=== PATIENT | male | born 1950 | race Caucasian/White ===

== ENCOUNTER 2017-05-05 14:40 | Inpatient (IN) | payer BC, OTHER ==
--- NOTE | 2017-05-05 15:44 | EDPHY ---
H & P Time Seen by Provider: 05/05/17 15:36 HPI/ROS: CHIEF COMPLAINT: Right 3rd finger pain, swelling, and redness HISTORY OF PRESENT ILLNESS: The patient is a 67 y/o male complaining of a red, swollen, and painful area on his right 3rd finger. Due to his work, he often gets metal splinters in his fingers, which he thought happened yesterday when a small painful dot was present on his finger. However, he was unable to get anything out of his finger. He did put Neosporin on it last night. He has had difficulty bending this finger. Last night he experienced a fever, sweats, chills, and felt slightly confused, but no fever today. This morning he awoke with increased swelling of his entire digit, with redness extending up his arm. He is also complaining of pain and redness of his left 5th toe. Denies chest pain, cough, urinary complaints or other pertinent symptoms. REVIEW OF SYSTEMS: Aside from elements discussed in the HPI, a comprehensive 10-point review of systems was reviewed and is negative. Past Medical/Surgical History: Osteoarthritis, eczema, hip surgery Social History: at bedside, works for [employer], lives in [place]. Smoking Status: Former smoker Physical Exam: General Appearance: Alert, pleasant Eyes: Pupils equal and round, no conjunctival pallor or injection ENT, Mouth: Mucous membranes moist Neck: Normal inspection Respiratory: Lungs are clear to auscultation Cardiovascular: Regular rate and rhythm Gastrointestinal: Abdomen is soft and non-tender Neurological: A&O, nonfocal exam Skin: Warm and dry Extremities: Diffuse edema and erythema of entire upper right third digit, red streak that extends to his upper arm, no tenderness along the flexor tendon on the palmar aspect, no fluctuance. ROM without pain, but is limited due to swelling. No left axillary adenopathy. 5th left toe--erythema of distal phalanx , no drainage. Psychiatric: Mood and affect normal Constitutional: Initial Vital Signs Temperature (C) 36.7 C 05/05/17 14:55 Heart Rate 84 05/05/17 14:55 Respiratory Rate 16 05/05/17 14:55 Blood Pressure 159/95 H 05/05/17 14:55 O2 Sat (%) 96 05/05/17 14:55 O2 Delivery Mode Room Air Allergies/Adverse Reactions: latex Allergy (Verified 05/05/17 15:04) Rash Home Medications: Medication Instructions Recorded NK [No Known Home Meds] 05/05/17 Medical Decision Making - Diagnostics Imaging: I viewed and interpreted images myself ED Course/Re-evaluation: The patient is a 67 y/o male presenting with diffuse edema and erythema of the entire upper right third digit, with a red streak that extends to his upper arm. No tenderness along the flexor tendon on the palmar aspect. ROM without pain, but is limited due to swelling. There is no left axillary adenopathy. The patient's symptoms are c/w cellulitis and lymphangitis. There is no evidence of flexor tenosynovitis or abscess. He will need to be admitted for IV antibiotics; patient and his are comfortable with this plan. 2gm IV Ancef administered. Does not meet SIRS criteria. 1620: Patient's right hand x-ray reviewed by me is normal, there is no foreign body present. 1626: Consulted with hospitalist service, Dr. Goodman accepts admission of this patient. 1635: Consulted with Dr. Adams, hand surgeon, regarding the patient's cellulitis and lymphangitis. He agrees to consult on this patient. He does not recommend an MRI at this time. Differential Diagnosis: Differential diagnosis includes though it is not limited to flexor tenosynovitis , abscess, osteomyelitis, retained foreign body, neurovascular compromise. - Data Points Laboratory Results: Laboratory Results 05/05/17 15:45 05/05/17 15:45 Medications Given: Vancomycin/Sodium Chloride (Vancomycin 1 Gm (Premix)) 250 mls @ 250 mls/hr IV Q12H ADDISON Stop: 05/07/17 20:29 Last Admin: 05/06/17 08:53 Dose: 250 mls Ibuprofen (Motrin) 600 mg PO Q8HRS PRN PRN Reason: Pain, Inflammatory Stop: 11/01/17 22:41 Last Admin: 05/06/17 10:40 Dose: 600 mg Discontinued Medications Diphtheria/Tetanus/Acell Pertussis (Boostrix) 0.5 ml IM .ONCE ONE Stop: 05/05/17 15:49 Last Admin: 05/05/17 16:24 Dose: 0.5 ml Cefazolin Sodium/Dextrose (Ancef 2 Gm (Premix)) 100 mls @ 200 mls/hr IV EDNOW ONE PRN Reason: Protocol Stop: 05/05/17 16:17 Last Admin: 05/05/17 16:23 Dose: 100 mls Departure - Departure Disposition: [facility] Inpatient Acute Clinical Impression: Lymphangitis Cellulitis Qualifiers: Site of cellulitis: extremity Site of cellulitis of extremity: finger Laterality: right Qualified Code(s): L03.011 - Cellulitis of right finger Report Scribed for: Marcy Pérez Report Scribed by: Tg Doardo Date of Report: 05/05/17 Time of Report: 15:44 Physician Review and Approval Statement: 05/05/17 15:44 Portions of this note were transcribed by a medical staff physician. I personally performed a history, physical exam, medical decision making, and confirmed accuracy of information the transcribed note.
[2017-05-05] MEDS ORDERED: TDAP ADULT 0.5 ML INJ (BOOSTRIX) IM ONE (15:48)
[2017-05-05] MEDS ORDERED: ceFAZolin 2 GM/DEXTROSE 100 ML IV ONE (15:48)
[2017-05-05 15:57] LABS: % IMMATURE GRANULYOCYTES 0.4 % (0.0-1.1); ABSOLUTE IMMATURE GRANULOCYTES 0.04 10^3/uL (0.00-0.10); ADD DIFF? NO; ADD MORPH? NO; ADD SCAN? NO; ATYPICAL LYMPHOCYTE FLAG 0 (0-99); FRAGMENT RBC FLAG 0 (0-99); HEMATOCRIT 47.5 % (40.0-51.0); LEFT SHIFT FLG 0 (0-99); LIPEMIA HEMOLYSIS FLAG 90 (0-99); MEAN CELL HEMOGLOBIN 32.9 pg (27.9-34.1); MEAN CELL HEMOGLOBIN CONCENTR. 35.8 g/dL (32.4-36.7); MEAN CELL VOLUME 91.9 fL (81.5-99.8); MEAN PLATELET VOLUME 11.1 fL (8.7-11.7); PLATELET CLUMPS FLAG 0 (0-99); PLATELET COUNT 182 10^3/uL (150-400); RED BLOOD CELL COUNT 5.17 10^6/uL (4.40-6.38); RED CELL DISTRIBUTION WIDTH 12.7 % (11.5-15.2)
[2017-05-05 16:07] LABS: INR 1.05 (0.83-1.16); PROTIME(PATIENT) 13.9 SEC (12.0-15.0)
[2017-05-05 16:08] LABS: APTT 30.6 SEC (23.0-38.0)
[2017-05-05 16:11] LABS: ANION GAP 14 mEq/L (8-16); BILIRUBIN,TOTAL 1.2 mg/dL (0.1-1.4); CALCIUM 9.4 mg/dL (8.5-10.4); CARBON DIOXIDE 27 mEq/l (22-31); CHLORIDE 101 mEq/L (97-110); CREATININE 1.2 mg/dL (0.7-1.3); GLOMERULAR FILTRATION RATE > 60; GLUCOSE 90 mg/dL (70-100); SODIUM 142 mEq/L (134-144)
[2017-05-05] MEDS ORDERED: ONDANSETRON 4 MG/2 ML VIAL IVP PRN (16:26)
[2017-05-05] MEDS ORDERED: ACETAMINOPHEN 325 MG TAB PO PRN (16:26)
[2017-05-05] MEDS ORDERED: ONDANSETRON DISINTEGRATING 4 MG TAB PO PRN (16:26)
--- NOTE | 2017-05-05 20:01 | GHP ---
[f rep st] HISTORY AND PHYSICAL DATE OF ADMISSION: 05/05/2017 CHIEF COMPLAINT: Painful finger. HISTORY OF PRESENT ILLNESS: This is a 67-year-old male with limited past medical history, who notice d 48 hours ago some discomfort on the medial aspect of his middle finger on the left. The patient de scribed a small red bump noted when he had the discomfort. Patient works frequently in [employer] and has experienced metal splinters in the past. He was suspicious he may have gotten one. Took a self- sterilized needle and attempted to remove whatever was causing the discomfort. The patient then note d increased discomfort and some erythema at the puncture site. Over the course of the next 24 hours, the pain progressed until the evening prior to presentation. His finger became markedly swollen, er ythematous with bruising, markedly increased pain, and inability to move his finger, and then streaki ng erythema up the dorsal aspect of his hand into his forearm and elbow. At this point the patient p resented to the emergency department for evaluation. In the ED, he is almost unable to move the fing er secondary to pain. It is markedly swollen and discolored. There is streaking that passes the elb ow of the left arm. The patient does endorse subjective fevers and chills the evening prior to prese ntation with a sensation of nausea. Denies any vomiting. Denies any diarrhea. Denies chest pain, s hortness of breath. The patient similarly excavated the small toe on his left foot and has additiona l erythema around that digit. PAST MEDICAL HISTORY: 1. Eczema. 2. Osteoarthritis. SOCIAL HISTORY: Negative for tobacco. Occasional marijuana. Alcohol on the weekends. FAMILY HISTORY: Negative for skin infections. REVIEW OF SYSTEMS: A 10-point review of systems is negative with the exception of that reported in t he HPI. PHYSICAL EXAMINATION: VITAL SIGNS: Blood pressure 149/89, heart rate 67, respiratory rate 16, 94% o n room air, 37.0. GENERAL: This is a very pleasant, middle-aged male in no acute distress. HEENT: Notable for moist mucous membranes. Eye exam is negative for any icterus. CARDIAC: Patient is reg ular rate and rhythm. PULMONARY: Clear to auscultation bilaterally. GASTROINTESTINAL: Positive rex wel sounds. ABDOMEN: Obese, but soft. MUSCULOSKELETAL: No lower extremity edema. Limited range o f motion of the finger. No fluctuance is appreciated. SKIN: The 3rd digit on his left hand is dominick edly swollen and erythematous with bruising around the distal joint. There is clear erythema extendi ng up the dorsum of his hand into the forearm and across the lateral aspect of the elbow up into the upper arm. The skin of the 5th digit on the left foot is erythematous. No fluctuance or streaking i s appreciated. DATA: X-ray of the left hand, which I personally reviewed and interpreted, does not show any foreign objects or osseous abnormalities. LABORATORY: White count 10.4, hematocrit 47.5, platelets of 182. Creatinine 1.2, sodium 142, potass ium 4.0. ASSESSMENT AND PLAN: This is a 67-year-old male presenting with a painful finger. 1. Acute cellulitis of the left 3rd digit. There is marked erythema, edema of that digit, with asso ciated advanced streaking up the arm. Certainly concerning for a progressive infection. Will admit t he patient. Initiate IV cefazolin. We have consulted the Hand Surgeons to come look and make recomm endations related to either additional diagnostic imaging or surgical intervention. Will treat the p atient with p.r.n. pain medications as needed. Keep n.p.o. until Dr. Adams, who was consulted, leave s recommendations. Blood cultures have been obtained from the emergency department. 2. Acute leukocytosis secondary to cellulitis. We will follow. On appropriate antibiotic therapy. 3. Prophylaxis with Lovenox. 4. Diet: N.p.o. until Dr. Adams evaluates. DISPOSITION: Expecting greater than 2 midnights, as the patient's infection is clearly advancing. S uspect he will need more than 24 hours of IV antibiotics for treatment. I discussed the case with the emergency room physician. Patient will be triaged to the Medical-Surgi emely Unit floor for care. /[id number]/MODL
[2017-05-05] MEDS: VANCOMYCIN HCL/NORMAL SALINE 250 ML IV SCH (20:55)
[2017-05-05] MEDS ORDERED: ceFAZolin 2 GM/DEXTROSE 100 ML IV SCH (22:00)
[2017-05-05] MEDS ORDERED: HYDROCODONE/APAP 5/325 TAB PO PRN (22:43)
--- NOTE | 2017-05-05 22:47 | GCON ---
[f rep st] CONSULTATION CONSULTATION NOTE DATE OF CONSULTATION: 05/05/2017 CHIEF COMPLAINT: Infection left middle finger. 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 On Saturday, he thought he might have a puncture wound in his left middle finger, but now doubts it. He was picking at it, making an attempt to drain whatever was there in the puncture site using a needle. In the ensuing day and a half, he noticed increasing pain in the distal segment of the left middle finger and redness, which began to spread up the finger and hand. He says he had some fever last night. PAST MEDICAL HISTORY: Generally unremarkable. He has a history of eczema and osteoarthritis. He did have an ingrown toenail, which was infected several weeks back and has a small receding amount of redness. SOCIAL HISTORY: He is a nonsmoker for the past 20 years, but occasionally smokes marijuana. PHYSICAL EXAMINATION: VITAL SIGNS: He is afebrile. His vital signs are stable. EXTREMITIES: Examination of the involved left hand shows what looks like a little puncture wound at the dorsal aspect just distal to the DIP joint and really quite marked fusiform swelling of the entire digit. There is additional erythema extending on both the volar and dorsal surfaces of the hand , and it is a little more indistinct on the volar surface, but quite distinct on the dorsal surface, and this then extends up. There are multiple streaks of lymphangitis in the forearm and into the upper arm. He does have some tender axillary lymphadenopathy, as well. There is no apparent fluctuance at the level of injury in the distal phalanx, and there is limited range of motion, but he is able to move the finger, and there is really very minimal tenderness over the finger flexor sheath, and the dorsum of the hand. There is no axial compression tenderness in the interphalangeal or metacarpophalangeal joints. He also does have an erythematous toe on his left foot, which does not extend beyond the base of the toe itself, which is fairly moderate. X-ray of the hand does not show any sign of foreign objects. LABORATORY DATA: White count of 10.4 without a significant left shift. Other lab investigations are normal. IMPRESSION: A fairly impressive looking finger infection. I am fairly satisfied that there is not a flexor tenosynovitis or a septic arthritis going on. PLAN: I suspect that open irrigation would not achieve very much at this point. I do think we should try to cover Gram positives including Methicillin- resistant staphylococcus aureus, and to that end, I have discussed with Dr. Goodman switching antibiotic from Ancef to vancomycin. I will keep a close eye on this and come and see him tomorrow morning to ensure that things are not worsening. /[id number]/MODL MTDD
[2017-05-05] MEDS: IBUPROFEN 600 MG TAB PO PRN (22:50)
[2017-05-06] MEDS ORDERED: ceFAZolin 2 GM/SWFI 2 GM/20 ML SYR IVP SCH
[2017-05-06 04:38] LABS: % IMMATURE GRANULYOCYTES 0.3 % (0.0-1.1); ABSOLUTE IMMATURE GRANULOCYTES 0.02 10^3/uL (0.00-0.10); ADD DIFF? NO; ADD MORPH? NO; ADD SCAN? NO; ATYPICAL LYMPHOCYTE FLAG 0 (0-99); FRAGMENT RBC FLAG 0 (0-99); HEMATOCRIT 43.2 % (40.0-51.0); HEMOGLOBIN 15.3 g/dL (13.7-17.5); LEFT SHIFT FLG 0 (0-99); LIPEMIA HEMOLYSIS FLAG 90 (0-99); MEAN CELL HEMOGLOBIN 32.6 pg (27.9-34.1); MEAN CELL HEMOGLOBIN CONCENTR. 35.4 g/dL (32.4-36.7); MEAN CELL VOLUME 92.1 fL (81.5-99.8); MEAN PLATELET VOLUME 11.3 fL (8.7-11.7); PLATELET CLUMPS FLAG 0 (0-99); PLATELET COUNT 167 10^3/uL (150-400); RED BLOOD CELL COUNT 4.69 10^6/uL (4.40-6.38); RED CELL DISTRIBUTION WIDTH 12.7 % (11.5-15.2)
[2017-05-06] MEDS: VANCOMYCIN HCL/NORMAL SALINE 250 ML IV SCH ×2 (08:53→20:17)
--- NOTE | 2017-05-06 10:20 | PDMN ---
Medical Necessity Medical necessity: Patient meets INPT criteria per physician note and MCG M-70 Celllulitis (acute cellulitis of L 3rd digit w/lymphangitis up L arm; leukocytosis/WBC > 10,000; IV Vanco; close monitoring by hand surgery; anticipated LOS > 2 midnights for ongoing IV therapy in advancing infection.)
[2017-05-06] MEDS: IBUPROFEN 600 MG TAB PO PRN (10:40)
--- NOTE | 2017-05-06 10:58 | SOAPPROG ---
SOAP Progress Note Assessment/Plan: Assessment: Definitely responding to antibiotics. Plan: Carry on with IV vancomycin. Adjust based on blood cultures if positive. Start warm compresses to finger. Still considering I&D but possibly just with local anesthesia. Will reassess later today. 05/06/17 10:55 Objective: Erythema and swelling in arm, hand and finger all receding. White count normal. Still afebrile. Vital Signs Temp Pulse Resp BP Pulse Ox 37.1 C 71 15 154/88 H 93 05/06/17 08:57 05/06/17 08:57 05/06/17 08:57 05/06/17 08:57 05/06/17 08:57 Laboratory Results 05/06/17 04:09 05/05/17 05/06/17 05/07/17 05:59 05:59 05:59 Intake Total 750 Balance 750 PT 13.9 SEC (12.0-15.0) 05/05/17 15:45 INR 1.05 (0.83-1.16) 05/05/17 15:45 ICD10 Worksheet Patient Problems: Problems Problem Status Onset Cellulitis Acute Lymphangitis Acute Osteoarthritis of hip Acute
--- NOTE | 2017-05-06 11:41 | ASMTCMCOM ---
CM Note CM Note Notes: Pt admitted w/cellulitis of finger. On IV ABX's, uncertain at this time if he will need these at dc or not. May possibly have I&D if needed. DC needs tbd; CM will follow to see if pt will need IV ABX's at dc. Date Signed: 05/06/2017 11:41 AM Electronically Signed By:Lala Nunez RN
[2017-05-06] MEDS: ENOXAPARIN 40 MG/0.4 ML SYR SC SCH (17:46)
--- NOTE | 2017-05-06 18:20 | HOSPPROG ---
Hospitalist Progress Note Assessment/Plan: DIAGNOSES: -cellulitis and finger and hand with lymphangitic streaking to arm Overnight he feels slightly better but still with quite a bit of swelling and redness and some pain; still no indication at this time for any surgical approach but will need to watch very closely as his high risk for deeper tissue infection PLANS: -continue current antibiotics -follow cultures -follow clinical exam very closely SUBJECTIVE: Slight decrease in pain No chills or sweats OBJECTIVE Vitals reviewed: Stable without fever Exam: alert oriented skin warm dry color ok resps not labored lungs clear BSs heart regular abd soft nondistended nontender, bowel sounds present limbs finger and hand still with quite a bit of cellulitis very swollen tender, moving finger a little bit better no palpable deep infection or fluctuance iv site ok CBC stable Cultures with no growth to date Objective: Vital Signs Temp Pulse Resp BP Pulse Ox 36.5 C 71 16 150/78 H 93 05/06/17 15:55 05/06/17 15:55 05/06/17 15:55 05/06/17 15:55 05/06/17 15:55 Laboratory Results 05/06/17 04:09 05/05/17 05/06/17 05/07/17 06:59 06:59 06:59 Intake Total 750 300 Balance 750 300 PT 13.9 SEC (12.0-15.0) 05/05/17 15:45 INR 1.05 (0.83-1.16) 05/05/17 15:45 ICD10 Worksheet Patient Problems: Problems Problem Status Onset Cellulitis Acute Lymphangitis Acute Osteoarthritis of hip Acute
[2017-05-07 08:18] LABS: % IMMATURE GRANULYOCYTES 0.4 % (0.0-1.1); ABSOLUTE IMMATURE GRANULOCYTES 0.02 10^3/uL (0.00-0.10); ADD DIFF? NO; ADD MORPH? NO; ADD SCAN? NO; ATYPICAL LYMPHOCYTE FLAG 10 (0-99); FRAGMENT RBC FLAG 0 (0-99); HEMATOCRIT 42.3 % (40.0-51.0); HEMOGLOBIN 15.3 g/dL (13.7-17.5); LEFT SHIFT FLG 0 (0-99); LIPEMIA HEMOLYSIS FLAG 90 (0-99); MEAN CELL HEMOGLOBIN 33.3 pg (27.9-34.1); MEAN CELL HEMOGLOBIN CONCENTR. 36.2 g/dL (32.4-36.7); MEAN CELL VOLUME 92.2 fL (81.5-99.8); MEAN PLATELET VOLUME 11.4 fL (8.7-11.7); PLATELET CLUMPS FLAG 10 (0-99); PLATELET COUNT 184 10^3/uL (150-400); RED BLOOD CELL COUNT 4.59 10^6/uL (4.40-6.38); RED CELL DISTRIBUTION WIDTH 12.8 % (11.5-15.2)
[2017-05-07 08:42] LABS: CREATININE 1.1 mg/dL (0.7-1.3); GLOMERULAR FILTRATION RATE > 60
[2017-05-07] MEDS: VANCOMYCIN HCL/NORMAL SALINE 250 ML IV SCH (09:49)
[2017-05-07] MEDS: IBUPROFEN 600 MG TAB PO PRN ×3 (09:53→20:35)
[2017-05-07] MEDS: ENOXAPARIN 40 MG/0.4 ML SYR SC SCH (09:53)
--- NOTE | 2017-05-07 13:24 | HOSPPROG ---
Hospitalist Progress Note Assessment/Plan: DIAGNOSES: -cellulitis and finger and hand with lymphangitic streaking to arm Overnight he feels slightly better but still with quite a bit of swelling and redness and some pain; still no indication at this time for any surgical approach but will need to watch very closely as his high risk for deeper tissue infection PLANS: -continue current antibiotics -follow cultures -follow clinical exam very closely -will review with Dr. Adams, at this time it does not appear to me that there is any palpable fluctuance, but would wonder if at any point we might consider some more advanced imaging if he does not get better range of motion of the finger fairly quickly to make sure there is not a tenosynovitis ill component to infection SUBJECTIVE: Again some slight decrease and pain but still with significant pain and decreased mobility of his finger about the same as yesterday Chills or sweats Last evening Dr. Adams apparently revisited the patient and made some small Lances and apparently removed very small amount of purulent fluid OBJECTIVE Vitals reviewed: Stable without fever Exam: alert oriented skin warm dry color ok resps not labored lungs clear BSs heart regular abd soft nondistended nontender, bowel sounds present The redness and swelling of the dorsum of the hand is notably better, the finger and also appears less red and swollen although on the lateral ulnar aspect of the finger there is still some significant erythema swelling tenderness, some ecchymosis now as well iv site ok Laboratory data: CBC stable Renal function stable today, vancomycin level at 8.5 Cultures with no growth to date Objective: Vital Signs Temp Pulse Resp BP Pulse Ox 36.8 C 65 15 153/67 H 92 05/07/17 11:05 05/07/17 11:05 05/07/17 11:05 05/07/17 11:05 05/07/17 11:05 Microbiology 05/06/17 20:35 Gram Stain - Final Finger - Swab Laboratory Results 05/07/17 08:00 05/07/17 08:00 05/06/17 05/07/17 05/08/17 06:59 06:59 06:59 Intake Total 750 600 Balance 750 600 PT 13.9 SEC (12.0-15.0) 05/05/17 15:45 INR 1.05 (0.83-1.16) 05/05/17 15:45 ICD10 Worksheet Patient Problems: Problems Problem Status Onset Cellulitis Acute Lymphangitis Acute Osteoarthritis of hip Acute
--- NOTE | 2017-05-07 16:09 | ASMTCMCOM ---
CM Note CM Note Notes: Pt still on IV vanco. No surgery planned yet. Unknown if pt will need IV ABX at d/c. CM will continue to follow. Date Signed: 05/07/2017 04:09 PM Electronically Signed By:LOGAN Hilliard
[2017-05-07] MEDS: VANCOMYCIN 1 GM in D5W 250 ML IV SCH (20:35)
[2017-05-08] MEDS ORDERED: CEPHALEXIN 500 MG CAP PO SCH (09:45)
--- NOTE | 2017-05-08 09:55 | PDDCSUM ---
Discharge Summary Discharge Summary: DISCHARGE DIAGNOSES: -cellulitis of finger hand and arm on the left, with several very tiny superficial abscesses all drained with superficial incisions CONSULTANTS: Dr. Mina Adams PROCEDURES: Incision and drainage of tiny superficial skin abscesses HOSPITAL COURSE SUMMARY: This patient who has chronically dry skin and cracking skin around his fingernails, comes in with an extensive cellulitis from his left middle finger up into the hand and extending up the arm and past the elbow. Initially there were no abscesses and no evidence of any deep soft tissue infection or joint or bone infection. He was treated with vancomycin pending cultures. Eventually he did develop some small superficial skin abscesses and we did receive a small bit of fluid with a group a strep from 1 of these abscesses. The patient did improve although initially fairly slowly. At this time with elevation and antibiotics he is making very good progress with remarkable reduction of edema pain and the limited motion that he initially had and his finger and hand. A total of 4 very small superficial skin abscesses were opened by superficial incision and these drained small amounts of fluid. At this time he has improved well enough that we can change to oral antibiotics and get him home. It is recommended that he continue with elevation of the arm. I did give the patient extensive instruction on how out of manage his dry and cracking skin to try and prevent these infections. Follow-up is recommended urgently if he develops fever or any significant worsening including pain swelling redness or anything that seems like an abscess or difficulty moving any of his joints. PENDING TEST RESULTS: None MEDICATION CHANGES: Keflex 500 mg four times daily, for some beyond discharge, at which time he will follow up to be sure that it is appropriate to stop antibiotics FOLLOW-UP PLAN: With Dr. Mina Adams and with his primary care physician Greater than 35 minutes bedside and care coordination time today
--- NOTE | 2017-05-08 10:01 | ASMTCMCOM ---
CM Note CM Note Notes: Pt to DC today on IV Keflex. No other DC needs. Date Signed: 05/08/2017 10:01 AM Electronically Signed By:Farnaz Crabtree LCSW
[2017-05-08] MEDS: ENOXAPARIN 40 MG/0.4 ML SYR SC SCH (10:18)
[2017-05-08 11:00] VITALS: BP 167/89; PULSE 67; RESP 14; TEMP 96.5; O2SAT 95
[2017-05-08] MEDS: IBUPROFEN 600 MG TAB PO PRN (11:15)
[2017-05-08] MEDS: VANCOMYCIN 1 GM in D5W 250 ML IV SCH (11:18)
--- NOTE | 2017-05-08 14:47 | ASDISCHSUM ---
Discharge Information Plan Status: Medically Cleared to Leave: Discharge Date:05/08/2017 02:05 PM CM D/C Disposition: ADT D/C Disposition:Home, Routine, Self-Care Projected Discharge Date:05/08/2017 02:05 PM Transportation at D/C: Discharge Delay Reason: Follow-Up Date:05/08/2017 02:05 PM Discharge Slot: Final Diagnosis: Placement Information Patient Contact Information Contact Name:DALI Relationship: Address:[address] City:[place] Alternate Phone: State/Zip Code:[place] [address] Email: Financial Information Financial Class:HMO and PPO Plans Primary Plan Desc: OUT OF STATE PPO Primary Plan Number:[id number] Secondary Plan Desc:MEDICARE INPATIENT Secondary Plan Number:[id number] Assessment Information [facility] CM Progress Note CM Note CM Note Notes: Pt admitted w/cellulitis of finger. On IV ABX's, uncertain at this time if he will need these at dc or not. May possibly have I&D if needed. DC needs tbd; CM will follow to see if pt will need IV ABX's at dc. Date Signed: 05/06/2017 11:41 AM Electronically Signed By:Lala Nunez RN [facility] CM Progress Note CM Note CM Note Notes: Pt still on IV vanco. No surgery planned yet. Unknown if pt will need IV ABX at d/c. CM will continue to follow. Date Signed: 05/07/2017 04:09 PM Electronically Signed By:LOGAN Hilliard [facility] CM Progress Note CM Note CM Note Notes: Pt to DC today on IV Keflex. No other DC needs. Date Signed: 05/08/2017 10:01 AM Electronically Signed By:Farnaz Crabtree LCSW Intervention Information Intervention Type:*IM-Signed Date of Service:05/08/2017 11:13 AM Patient Type:Inpatient Staff Member:Betzaida Jansen Hours: Discipline: Severity: Comment:
== END 2017-05-08 14:05 | disposition home or self-care (01) | DRG 603 ==
LOC: F1N 17:42
PROVIDERS: ADMIT Hospitalist; ATTEND Internal Medicine
PROC: 0H9GXZZ Drainage of Left Hand Skin, External Approach (ICD-10-PCS; principal; 2017-05-07)
DX: L03.012 Cellulitis of left finger (principal); L03.022 Acute lymphangitis of left finger; L03.114 Cellulitis of left upper limb; L03.124 Acute lymphangitis of left upper limb
CPT/HCPCS: 96374; J0690; J1650; J3370